=== PATIENT | male | born 1990 | race African-American/Black ===

== ENCOUNTER 2019-11-08 12:44 | Emergency (ER) | payer OTHER ==
[~2019-11-08] VITALS: Ht 185.4 cm; Wt 77.1 kg
[2019-11-08 12:49] VITALS: BP 120/79
[2019-11-08] MEDS ORDERED: PROMETHAZINE-D473 M1 PO (13:25)
[2019-11-08] MEDS ORDERED: TAMIFLU75 MG PO (13:25)
== END 2019-11-08 13:43 | disposition home or self-care (01) ==
LOC: ER 12:44
DX: J10.1 Influenza due to other identified influenza virus with other respiratory manifestations (principal); Z87.891 Personal history of nicotine dependence

== ENCOUNTER 2020-04-14 19:00 | Emergency (ER) | payer OTHER ==
[~2020-04-14] VITALS: Ht 185.4 cm; Wt 77.1 kg
[~2020-04-14 19:00] MED LIST: PROMETHAZINE-D473 M1 PO; TAMIFLU75 MG PO
[2020-04-14] MEDS ORDERED: VALTREX1000 MG PO (19:54)
[2020-04-14 19:55] VITALS: BP 148/85
== END 2020-04-14 19:55 | disposition home or self-care (01) ==
LOC: ER 19:00
DX: B02.9 Zoster without complications (principal); Z87.891 Personal history of nicotine dependence; Z79.899 Other long term (current) drug therapy